=== PATIENT | female | born 1985 | race Hispanic/Latino ===

== ENCOUNTER 2017-03-10 22:46 | Emergency (ER) | payer OTHER ==
[2017-03-10 22:59] VITALS: BP 136/90; RESP 16; TEMP 98.2; O2SAT 99
--- NOTE | 2017-03-10 23:41 | ED PDOC ---
HPI: Chest Pain Time Seen by Provider: 03/10/17 23:07 Chief Complaint (Nursing): Chest Pain Chief Complaint (Provider): Chest pain, shortness of breath History Per: Patient History/Exam Limitations: no limitations Onset/Duration Of Symptoms: Hrs Current Symptoms Are (Timing): Better Additional History Per: Patient Additional Complaint(s): 32yo female, presents to ED with complaints of chest pain and shortness of breath 4 hours ago. Patient states she got a prescription for Fioricet from an urgent care center due to her tension headache. States she took one fioricet at 1800 today and at aorund 1900 she felt "shocks" in her chest, which "took her breath way." She states those symptoms are now gone but she feels dizzy and anxious. She denies any control use, long plane or car ride, recent surgeries, immobilization. She also denies any cough, fever, chills. She has no other medical complaints. - Risk Factors PE Risk Factors: Neg: Extremity Immobilization/Fx, Decreased Mobilty /Activity, Recent Major Surgery, Estrogen Usage Past Medical History Reviewed: Historical Data, Nursing Documentation, Vital Signs Vital Signs: Last Vital Signs Temp 98.2 F 03/10/17 22:56 Pulse 88 03/11/17 00:03 Resp 16 03/10/17 22:56 BP 136/90 03/10/17 22:56 Pulse Ox 99 03/11/17 00:03 - Medical History PMH: Seizures - Surgical History Surgical History: Tonsillectomy (+adenoids) - Family History Family History: States: No Known Family Hx - Living Arrangements Living Arrangements: With Family - Allergies Allergies/Adverse Reactions: Allergies Allergy/AdvReac Type Severity Reaction Status Date / Time celecoxib [From Celebrex] Allergy RASH Verified 03/10/17 22:56 Review of Systems ROS Statement: Except As Marked, All Systems Reviewed And Found Negative Constitutional: Negative for: Fever, Chills Cardiovascular: Negative for: Chest Pain Respiratory: Negative for: Cough, Shortness of Breath Neurological: Positive for: Dizziness Psych: Positive for: Anxiety Physical Exam - Reviewed Nursing Documentation Reviewed: Yes Vital Signs Reviewed: Yes - Physical Exam Appears: Positive for: Non-toxic, No Acute Distress Head Exam: Positive for: ATRAUMATIC, NORMAL INSPECTION, NORMOCEPHALIC Skin: Positive for: Normal Color Eye Exam: Positive for: Normal appearance Neck: Positive for: Supple Cardiovascular/Chest: Positive for: Regular Rate, Rhythm. Negative for: Murmur Respiratory: Positive for: Normal Breath Sounds. Negative for: Respiratory Distress Gastrointestinal/Abdominal: Positive for: Normal Exam, Soft. Negative for: Tenderness Extremity: Positive for: Normal ROM. Negative for: Pedal Edema, Deformity Neurologic/Psych: Positive for: Alert, Oriented. Negative for: Motor/Sensory Deficits - ECG ECG: Positive for: Interpreted By Me, Viewed By Me ECG Rhythm: Positive for: Normal QRS, Sinus Rhythm. Negative for: ST/T Changes Rate: 88 O2 Sat by Pulse Oximetry: 99 (RA) Pulse Ox Interpretation: Normal Medical Decision Making Medical Decision Making: Impression: Medication side effect Plan: -- EKG -- CXR Reassess Time: 00:02 Patient reports feeling much better. Chest x-ray reviewed and shows no acute diseases. Patient stable for discharge home, informed to follow up with PCP in 1-2 days. Scribe Attestation: Documented by Neyda Richey acting as a scribe for Nelson Barth MD. Provider Attestation: All medical record entries made by the Scribe were at my direction and personally dictated by me. I have reviewed the chart and agree that the record accurately reflects my personal performance of the history, physical exam, medical decision making, and the department course for this patient. I have also personally directed, reviewed, and agree with the discharge instructions and disposition. Disposition - Clinical Impression Clinical Impression: Atypical chest pain - Disposition Referrals: [facility] [Outside] Disposition: Routine/Home Disposition Time: 00:02 Condition: STABLE Instructions: Noncardiac Chest Pain (ED) Forms: [employer] [facility] ([place])
[2017-03-10 23:43] VITALS: PULSE 88
--- NOTE | 2017-03-11 09:22 | RAD ---
HISTORY: cp, sob COMPARISON: No prior. TECHNIQUE: Chest PA and lateral FINDINGS: LUNGS: No active pulmonary disease. PLEURA: No significant pleural effusion identified. No pneumothorax apparent. CARDIOVASCULAR: Normal. OSSEOUS STRUCTURES: No significant abnormalities. VISUALIZED UPPER ABDOMEN: Normal. OTHER FINDINGS: None. IMPRESSION: No acute cardiopulmonary disease appreciated.
--- NOTE | 2017-03-12 16:00 | CARD ---
APPROVED REPORT EKG Measurement Heart [id number] ID [id number] <Conclusion> Normal sinus rhythm Normal ECG
== END 2017-03-11 00:16 | disposition home or self-care (01) ==
LOC: H.ER 22:46
DX: R07.89 Other chest pain (principal); R06.02 Shortness of breath

== ENCOUNTER 2018-01-31 22:15 | Emergency (ER) | payer OTHER ==
[2018-01-31 22:37] VITALS: O2SAT 97
--- NOTE | 2018-02-01 02:05 | ED PDOC ---
HPI: General Adult Time Seen by Provider: 02/01/18 01:42 Chief Complaint (Nursing): Weakness/Neurological Deficit Chief Complaint (Provider): numbness/tingling History Per: Patient History/Exam Limitations: no limitations Onset/Duration Of Symptoms: Days Additional Complaint(s): 32 y/o female presents for evaluation of numbness/tingling to legs and right side of face x 1 day. Patient states she has had ongoing numbness/tingling to bilateral hands x months; has been taking multiple vitamins due to deficiencies found on blood work, which has helped with symptoms; and is being followed by a Neurologist and just had a brain MRI 01/25 but has not yet gotten results. Patient states today she noticed numbness/tingling sensation in both legs, and then noticed it on right cheek. Denies headache, dizziness, extremity weakness, chest pain, shortness of breath, palpitations. NIHSS Stroke Scale - Date/Time Evaluation Performed Date Performed: 02/01/18 Time Performed: 01:55 When Was NIHSS Performed: Baseline - How Severe is the Stroke Level of Consciousness: 0=Alert LOC to Questions: 0=Both comments correct LOC to commands: 0=Obeys both correctly Best Gaze: 0=Normal Visual: 0=No visual loss Facial: 0=Normal Motor Arm - Left: 0=No drift Motor Arm - Right: 0=No drift Motor Leg - Left: 0=No drift Motor Leg - Right: 0=No drift Limb Ataxia: 0=Absent Sensory: 0=Normal Best Language: 0=No aphasia Dysarthia: 0=Normal articulation Extinction & Inattention (Neglect): 0=Normal, no object Score: 0 Past Medical History Reviewed: Historical Data, Nursing Documentation, Vital Signs Vital Signs: Last Vital Signs Temp 98.1 F 01/31/18 22:31 Pulse 88 01/31/18 22:31 Resp 18 01/31/18 22:31 BP 138/98 H 01/31/18 22:31 Pulse Ox 97 01/31/18 22:31 - Medical History PMH: Asthma, Seizures, Sleep Apnea - Surgical History Surgical History: Tonsillectomy (+adenoids) - Family History Family History: States: Unknown Family Hx - Home Medications Home Medications: Ambulatory Orders Medication Instructions Recorded Cyclobenzaprine [Cyclobenzaprine 10 mg PO BID #15 tab 11/25/17 HCl] Lidocaine 1 each TP DAILY #10 adh..patch 11/25/17 - Allergies Allergies/Adverse Reactions: Allergies Allergy/AdvReac Type Severity Reaction Status Date / Time celecoxib [From Celebrex] Allergy RASH Verified 01/31/18 22:30 amoxicillin AdvReac VOMITING Verified 01/31/18 22:30 Review of Systems ROS Statement: Except As Marked, All Systems Reviewed And Found Negative Neurological: Positive for: Numbness Physical Exam - Reviewed Nursing Documentation Reviewed: Yes Vital Signs Reviewed: Yes - Physical Exam Appears: Positive for: Well, Non-toxic, No Acute Distress Head Exam: Positive for: ATRAUMATIC, NORMAL INSPECTION, NORMOCEPHALIC Skin: Positive for: Normal Color Eye Exam: Positive for: Normal appearance, EOMI, PERRL ENT: Positive for: Normal ENT Inspection Cardiovascular/Chest: Positive for: Regular Rate, Rhythm Respiratory: Positive for: Normal Breath Sounds Gastrointestinal/Abdominal: Positive for: Normal Exam Back: Positive for: Normal Inspection Extremity: Positive for: Normal ROM Neurologic/Psych: Positive for: Alert, Oriented (x3). Negative for: Motor/Sensory Deficits - ECG O2 Sat by Pulse Oximetry: 97 - Progress ED Course And Treament: Patient educated on normal exam findings, offered CT head to r/out acute abnormality (although less likely considering MRI done last week) but explained she ultimately needs to f/up with Neurologist for MRI results. Patient declines CT at this time; states she will call her Neurologist in am to follow up. Return precautions given Disposition - Clinical Impression Clinical Impression: Paresthesias - Patient ED Disposition Is Patient to be Admitted: No Counseled Patient/Family Regarding: Diagnosis, Need For Followup - Disposition Disposition: Routine/Home Disposition Time: 02:31 Condition: IMPROVED Instructions: Paresthesias (DC)
[2018-02-01 05:16] VITALS: BP 127/79; PULSE 69; RESP 17; TEMP 98
== END 2018-02-01 03:10 | disposition home or self-care (01) ==
LOC: H.ER 22:15
DX: R20.2 Paresthesia of skin (principal); Z88.0 Allergy status to penicillin